=== PATIENT | male | born 1950 | race Caucasian/White ===

== ENCOUNTER 2021-03-05 10:35 | Emergency (ER) | payer MEDICARE, OTHER ==
--- NOTE | 2021-03-05 13:12 | EDM.PDOC ---
ED HPI GENERAL MEDICAL PROBLEM - General Chief Complaint: Respiratory Problem Stated Complaint: POSSIBLE COVID Time Seen by Provider: 03/05/21 13:07 Source of Information: Reports: Patient History Limitations: Reports: No Limitations - History of Present Illness INITIAL COMMENTS - FREE TEXT/NARRATIVE: 70 y/o M c/o congestion, galvan, sore throat and fatigue for 1 week. Has been eating and drinking ok. Normal urine output. Denies feve, cough, chills, cp, db, abd pn, vision prob, extremity pn Onset: Gradual Duration: Week(s): Location: Reports: Head Quality: Reports: Ache Severity: Mild Improves with: Reports: None Worsens with: Reports: None - Related Data Allergies Allergy/AdvReac Type Severity Reaction Status Date / Time No Known Allergies Allergy Verified 03/05/21 11:24 Home Meds: Home Meds Aspirin [Aspirin EC] 81 mg PO DAILY 03/05/21 [History] Escitalopram Oxalate [Lexapro] 20 mg PO DAILY 03/05/21 [History] Ferrous Sulfate [Iron] 325 mg PO DAILY 03/05/21 [History] Gabapentin [Neurontin] 300 mg PO BEDTIME 03/05/21 [History] Melatonin 10 mg PO BEDTIME 03/05/21 [History] Pantoprazole [ProTONIX] 40 mg PO DAILY 03/05/21 [History] amLODIPine [Norvasc] 5 mg PO BEDTIME 03/05/21 [History] atorvaSTATin [Lipitor] 20 mg PO BEDTIME 03/05/21 [History] buPROPion [buPROPion XL] 150 mg PO DAILY 03/05/21 [History] Social & Family History - Tobacco Use Tobacco Use Status *Q: Never Tobacco User Second Hand Smoke Exposure: No - Caffeine Use Caffeine Use: Reports: Coffee - Recreational Drug Use Recreational Drug Use: No ED ROS GENERAL - Review of Systems Review Of Systems: Comprehensive ROS is negative, except as noted in HPI. ED EXAM, GENERAL - Physical Exam Exam: See Below Exam Limited By: No Limitations General Appearance: Alert, No Apparent Distress Eye Exam: Bilateral Eye: PERRL Nose: Other (swollen nasal turbinates. ) Throat/Mouth: Normal Inspection, Normal Lips, Normal Teeth, Normal Gums, Normal Oropharynx, Normal Voice, No Airway Compromise Head: Atraumatic, Normocephalic Neck: Supple, Non-Tender Respiratory/Chest: No Respiratory Distress, Lungs Clear Cardiovascular: Normal Peripheral Pulses, Regular Rate, Rhythm GI/Abdominal: Soft, Non-Tender Extremities: Normal Inspection, Normal Range of Motion, Non-Tender, Normal Capillary Refill, No Pedal Edema Neurological: Alert Psychiatric: Normal Affect, Normal Mood Skin Exam: Warm, Dry, Intact, Normal Color, No Rash Course - Vital Signs Last Recorded V/S: Last Vital Signs Temp 98.0 F 03/05/21 11:21 Pulse 76 03/05/21 11:21 Resp 20 03/05/21 11:21 BP 132/63 03/05/21 11:21 Pulse Ox 97 03/05/21 11:21 - Orders/Labs/Meds Orders: Active Orders 24 hr Category Date Time Status CULTURE STREP A CONFIRMATION [RM] Stat Lab 03/05/21 11:05 Results STREP SCRN A RAPID W CULT CONF [RM] Stat Lab 03/05/21 11:05 Results Isolation [COMM] Routine Oth 03/05/21 10:52 Active Labs: Laboratory Tests 03/05/21 Range/Units 11:05 SARS-CoV-2 RNA ([facility]) Negative (NEGATIVE) Departure - Departure Time of Disposition: 13:11 Disposition: Home, Self-Care 01 Condition: Good Clinical Impression: URI (upper respiratory infection) Qualifiers: URI type: unspecified viral URI Qualified Code(s): J06.9 - Acute upper respiratory infection, unspecified - Discharge Information *PRESCRIPTION DRUG MONITORING PROGRAM REVIEWED*: Not Applicable *COPY OF PRESCRIPTION DRUG MONITORING REPORT IN PATIENT MARANDA: Not Applicable Instructions: Upper Respiratory Infection, Adult Additional Instructions: Alternate Tylenol and ibuprofen for pain as needed. Use Afrin to decongest your sinuses. If any new symptoms or concerns develop or you do not feel better in a week contact your primary care facility or return to the ER. Sepsis Event Note (ED) - Focused Exam Vital Signs: Vital Signs Temp Pulse Resp BP Pulse Ox 03/05/21 11:21 98.0 F 76 20 132/63 97
== END 2021-03-05 13:21 | disposition home or self-care (01) ==
LOC: DL.ED 10:35
DX: J06.9 Acute upper respiratory infection, unspecified (principal); Z79.82 Long term (current) use of aspirin; Z79.899 Other long term (current) drug therapy; Z20.822 Contact with and (suspected) exposure to COVID-19
CPT/HCPCS: 87081; 87430; 87804; 99283; U0002